=== PATIENT | male | born 2000 | race African-American/Black ===

== ENCOUNTER 2020-03-08 11:49 | Emergency (ER) | payer MEDICAID ==
[~2020-03-08] VITALS: Ht 185.4 cm; Wt 100.0 kg
[2020-03-08] MEDS ORDERED: IBUPROFEN 600MG TABLET PO ONE (12:15)
[2020-03-08 14:00] VITALS: BP 128/80
== END 2020-03-08 14:03 | disposition home or self-care (01) ==
LOC: ER 11:49
DX: J02.9 Acute pharyngitis, unspecified (principal); M79.18 Myalgia, other site
CPT/HCPCS: 87070; 87430; 99283

== ENCOUNTER 2020-12-03 10:04 | Emergency (ER) | payer MEDICAID ==
[~2020-12-03] VITALS: Ht 185.4 cm; Wt 86.0 kg
[2020-12-03] MEDS ORDERED: MAGNESIUM/ALUMINUM HYDROXIDE/SIMETHICONE 30ML UDC PO STA (10:47)
[2020-12-03] MEDS ORDERED: FAMOTIDINE 20MG/2ML VIAL IV STA (10:47)
[2020-12-03] MEDS ORDERED: SODIUM CHLORIDE 0.9% 1,000 ML IV ONE (11:00)
[2020-12-03] MEDS ORDERED: ONDANSETRON HCL 4MG/2ML INJ IV ONE (11:15)
[2020-12-03 12:09] LABS: BASOPHILS % 0.4 % (0.0-2.0); EOSINOPHILS % 0.1 % (0.0-5.0); HEMATOCRIT. 43.8 % (42.0-52.0); HEMOGLOBIN. 14.2 g/dL (14.0-18.0); LYMPHOCYTES % 31.4 % (20.0-50.0); MEAN CORPUSCULAR HEMOGLOBIN 24.1 pg (28.0-32.0); MEAN CORPUSCULAR VOLUME 74.4 fL (80.0-94.0); MEAN PLATELET VOLUME 9.4 fl (7.4-10.4); MONOCYTES % 8.3 % (2.0-8.0); NEUTROPHILS % 59.8 % (40.0-76.0); PLATELET 182 x1000/uL (130-400); RED BLOOD CELL COUNT 5.89 mill/uL (4.7-6.1)
[2020-12-03 12:16] LABS: PROTHROMBIN TIME 10.9 sec (9.6-11.0)
[2020-12-03 12:38] LABS: CHLORIDE 105 mEq/L (98-107)
[2020-12-03] MEDS ORDERED: POTASSIUM CHLORIDE 20MEQ TABLET SR PO ONE (13:45)
[2020-12-03] MEDS ORDERED: IBUP-2028 MT (15:30)
[2020-12-03] MEDS ORDERED: METR500T MT (15:30)
[2020-12-03] MEDS ORDERED: ACET-2708 MT (15:30)
[2020-12-03] MEDS ORDERED: CIPR-263 MT (15:30)
[2020-12-03 15:55] VITALS: BP 124/67
[2020-12-03] MEDS ORDERED: IOHEXOL-350 100 ML BOTTLE ONE (16:56)
[2020-12-04] MEDS ORDERED: IOHEXOL-300 100 ML BOTTLE ONE (08:03)
[2020-12-16] MEDS ORDERED: LIDOCAINE HCL/PF 1% 10 MG/ML 5ML VIAL ONE (09:37)
[2020-12-16] MEDS ORDERED: ETOMIDATE 2MG/ML 10ML VIAL IV ONE (09:37)
== END 2020-12-03 15:59 | disposition home or self-care (01) ==
LOC: ER 10:04
DX: K52.9 Noninfective gastroenteritis and colitis, unspecified (principal); F11.10 Opioid abuse, uncomplicated; F14.10 Cocaine abuse, uncomplicated; F12.10 Cannabis abuse, uncomplicated
CPT/HCPCS: 36415; 74177; 80053; 83690; 85025; 85610; 96361; 96374; 96375; 99284; J2405; J3490; J7030; Q9967